=== PATIENT | female | born 1995 | race Caucasian/White ===

== ENCOUNTER 2023-01-04 14:50 | Outpatient (CLI) | payer SELFPAY ==
--- NOTE | 2023-01-04 15:00 | CRLHL7_ITS ---
For Patients: As a result of the Century Cures Act, medical imaging exams and procedure reports are released immediately into your electronic medical record. You may view this report before your referring provider. If you have questions, please contact your health care provider. INDICATION: Dating and viability TECHNIQUE: Ultrasound OB pelvis transabdominal and transvaginal. Real-time lugo-scale imaging of the pelvis was performed. COMPARISON: None FINDINGS: There is an intrauterine gestational sac with a embryo measuring 15 millimeters in crown-rump length. This corresponds to 7 weeks 6 days. No cardiac activity is identified visually, with M-mode or color Doppler imaging. Mildly enlarged yolk sac at 7 millimeters. No perigestational bleed. Maternal right ovary unremarkable. Maternal left ovary contains a 1.6 centimeter corpus luteum. IMPRESSION: Single intrauterine gestation with a sonographic age of 7 weeks 6 days without cardiac activity consistent with demise. Dictated by Wilfrido Padilla MD @ 01/04/2023 4:43:14 PM (Electronically Signed)
== END 2023-01-04 14:51 | disposition home or self-care (01) ==
LOC: US 14:53
PROVIDERS: PCP Physician Assistant; Visit Provider Physician Assistant
DX: Z34.91 Encounter for supervision of normal pregnancy, unspecified, first trimester (principal); Z3A.09 9 weeks gestation of pregnancy
CPT/HCPCS: 76817

== ENCOUNTER 2023-01-04 16:03 | Outpatient (CLI) | payer SELFPAY | END 2023-01-04 16:04 | disposition home or self-care (01) | PROVIDERS: PCP Physician Assistant; Visit Provider Physician Assistant | DX: Z34.91 Encounter for supervision of normal pregnancy, unspecified, first trimester (principal); Z3A.09 9 weeks gestation of pregnancy | CPT/HCPCS: 84702; 86850; 86900; 86901 ==

== ENCOUNTER 2023-02-02 10:04 | Outpatient (CLI) | payer SELFPAY | END 2023-02-02 10:05 | disposition home or self-care (01) | LOC: LONREF 10:05 | PROVIDERS: PCP Physician Assistant; Visit Provider Registered Nurse | DX: O02.1 Missed abortion (principal) | CPT/HCPCS: 84702 ==

== ENCOUNTER 2023-05-25 09:06 | Outpatient (CLI) | payer OTHER, SELFPAY ==
--- NOTE | 2023-05-25 09:15 | CRLHL7_ITS ---
For Patients: As a result of the Century Cures Act, medical imaging exams and procedure reports are released immediately into your electronic medical record. You may view this report before your referring provider. If you have questions, please contact your health care provider. INDICATION: , dating and viability assessment. TECHNIQUE: Ultrasound OB pelvis transabdominal. Real-time lugo-scale imaging of the pelvis was performed. COMPARISON: None FINDINGS: Clinical Age: 9 weeks 5 days based on LMP ([facility] 12/23/2023). Sonographic imaging demonstrates a single living intrauterine gestation. The embryo demonstrates a regular cardiac rate measuring 169 beats per minute. The embryo`s crown rump length measurement of 2.9 cm corresponds to a gestational age of 9 weeks 5 days which is concordant with the clinical age. There is a normal appearing yolk sac. There are no gross abnormalities noted within the embryo at this early state of development. The placenta has not yet developed. Hypoechoic perigestational collection measuring 1.3 x 0.5 x 0.9 centimeters. Maternal left ovarian corpus luteum measuring 3.1 centimeters. Maternal right ovary unremarkable. There are no suspicious fluid collections noted in the cul-de-sac. IMPRESSION: 1. Single live intrauterine gestation with a clinical age of 9 weeks 5 days. 2. Small perigestational bleed measuring 1.3 x 0.5 x 0.9 centimeters. Perigestational bleeds of this size are often an incidental finding. 3. Left ovarian corpus luteum. Dictated by Wilfrido Padilla MD @ 05/25/2023 10:24:23 AM (Electronically Signed)
== END 2023-05-25 09:07 | disposition home or self-care (01) ==
PROVIDERS: Visit Provider Advanced Practice Midwife
DX: Z34.91 Encounter for supervision of normal pregnancy, unspecified, first trimester (principal); O20.9 Hemorrhage in early pregnancy, unspecified; Z3A.09 9 weeks gestation of pregnancy
CPT/HCPCS: 76801; 76817

== ENCOUNTER 2023-05-25 10:28 | Outpatient (CLI) | payer OTHER, SELFPAY | END 2023-05-25 10:29 | disposition home or self-care (01) | PROVIDERS: Visit Provider Advanced Practice Midwife | DX: Z34.91 Encounter for supervision of normal pregnancy, unspecified, first trimester (principal); O20.9 Hemorrhage in early pregnancy, unspecified; O34.81 Maternal care for other abnormalities of pelvic organs, first trimester; N80.102 Endometriosis of left ovary, unspecified depth; Z3A.09 9 weeks gestation of pregnancy | CPT/HCPCS: 86592; 86703; 86704; 86706; 86762; 86787; 86803; 86850; 86900; 86901; 87086; 87340 ==

== ENCOUNTER 2023-08-10 12:13 | Outpatient (CLI) | payer OTHER, SELFPAY ==
--- NOTE | 2023-08-10 12:15 | CRLHL7_ITS ---
For Patients: As a result of the Century Cures Act, medical imaging exams and procedure reports are released immediately into your electronic medical record. You may view this report before your referring provider. If you have questions, please contact your health care provider. INDICATION: survey. TECHNIQUE: Conventional transabdominal two-dimensional grayscale ultrasound examination. COMPARISON: None. FINDINGS: There is a living fetus with gestational age of 20 weeks 5 days by LMP and 21 weeks 1 day by today`s measurements. EDC based on LMP is 12/23/2023. BPD: 5.0 cm, 21 weeks 1 day Head circumference: 18.3 cm, 20 weeks 5 days Abdominal circumference: 15.8 cm, 21 weeks Femur length: 3.6 cm, 21 weeks 2 days The weight is estimated at 397 grams, the 65th percentile. The heart rate is measured at 137 beats per minute and the rhythm appears regular. The head and spine are grossly intact. No gross facial abnormality is evident. The upper lip is intact. Four cardiac chambers are demonstrated. The heart and stomach appear to be on the same side. The diaphragm is intact. Two kidneys and a bladder are demonstrated. The cord insertion is normal and three cord vessels are noted. Four extremities are demonstrated. The amniotic fluid volume is within normal limits. The placenta is anterior with no evidence of previa. The cervical length is normal at 3.7 cm. IMPRESSION: 1. Living fetus with gestational age of 20 weeks 5 days by LMP and 21 weeks 1 day by today`s measurements. EDC based on LMP is 12/23/2023. 2. No anomaly evident. Dictated by Michel Robin MD @ 08/11/2023 6:56:50 AM (Electronically Signed)
== END 2023-08-10 12:14 | disposition home or self-care (01) ==
LOC: US 12:14
PROVIDERS: Visit Provider Advanced Practice Midwife
DX: Z34.92 Encounter for supervision of normal pregnancy, unspecified, second trimester (principal); Z3A.20 20 weeks gestation of pregnancy
CPT/HCPCS: 76805

== ENCOUNTER 2023-10-06 13:41 | Outpatient (CLI) | payer OTHER, SELFPAY | END 2023-10-06 13:42 | disposition home or self-care (01) | LOC: NFLDREF 10-10 09:59 | PROVIDERS: Visit Provider Advanced Practice Midwife | DX: Z34.83 Encounter for supervision of other normal pregnancy, third trimester (principal) | CPT/HCPCS: 86592 ==

== ENCOUNTER 2023-11-28 11:31 | Outpatient (CLI) | payer OTHER, SELFPAY ==
[2023-11-29 11:28] LABS: Strep B DNA Probe Negative (Negative)
[2023-11-29 11:34] LABS: Strep B Susceptibility Needed? No
== END 2023-11-28 11:32 | disposition home or self-care (01) ==
LOC: NFLDREF 11:31
PROVIDERS: Visit Provider Advanced Practice Midwife
DX: Z34.83 Encounter for supervision of other normal pregnancy, third trimester (principal)
CPT/HCPCS: 87081; 87653

== ENCOUNTER 2023-12-25 12:52 | Outpatient (CLI) | payer OTHER, SELFPAY ==
[2023-12-25 13:10] VITALS: BP 97/63; PULSE 69
[2023-12-25 13:11] VITALS: PULSE 71; O2SAT 98
[2023-12-25 13:22] VITALS: PULSE 80; O2SAT 95
[2023-12-25 13:23] VITALS: TEMP 36.7
--- NOTE | 2023-12-25 17:35 | PC.OBNST ---
NST Note NST Note Start: 12/25/23 13:19 Freq: ONCE Status: Active Protocol: Document 12/25/23 15:55 FJZ (Rec: 12/25/23 17:34 FJZ [id number]) NST Note 2 Para (# of births) 0 EDC 12/23/23 Gestational Age In Weeks & Days 40 Weeks & 2 Days Patient Presented with Complaint(s) of Contractions/cramping Reactive Yes Appropriate for Gestational Age Yes RN Luanne Santana RN Date 12/25/23 Reactive Yes Appropriate for Gestational Age Yes MULU Hancock RN Date 12/25/23 OB NST charge Yes Complete NST Note via Write Note Yes The provider's electronic signature indicates the NST is reactive/appropriate for gestational age. *Note to provider: If an addendum is required, open the patient's chart and click on the note under the Nurse/Allied Health tab.
== END 2023-12-25 15:55 | disposition home or self-care (01) ==
LOC: OB 15:26 → OB OUT 12-26 14:51 → OB 12-27 11:00
PROVIDERS: Visit Provider Advanced Practice Midwife
DX: O47.1 False labor at or after 37 completed weeks of gestation (principal); Z3A.40 40 weeks gestation of pregnancy
CPT/HCPCS: 59025; 86592; G0463

== ENCOUNTER 2023-12-25 18:10 | Inpatient (IN) | payer OTHER, SELFPAY ==
[2023-12-25] VITALS (62 sets, daily range): BP systolic 91–154; BP diastolic 51–72; PULSE 60–96; O2SAT 91–100
[2023-12-25] MEDS: LACTATED RINGERS 1000 ML 1,000 ML 125 ML IV ×2 (18:24→19:15)
[2023-12-25 18:37] LABS: Basophils Percent Auto 0.1 % (0.0-3.0); Eosinophils Percent Auto 0.6 % (0.0-7.0); Hematocrit 42.2 % (33.0-51.0); Hemoglobin* 14.8 gm/dL (12.0-16.0); Immature Granulocytes Pct Auto 1.6 %; Lymphocytes Percent Auto 10.5 % (20-44); Mean Corpuscular HGB Conc 35 gm/dL (32-36); Mean Corpuscular Hemoglobin 35 pg (26-34); Mean Corpuscular Volume 100 fL (80-100); Monocytes Percent Auto 4.9 % (0.0-11.0); Neutrophils Percent Auto 82.3 % (42.0-72.0); Platelet Count* 149 K/uL (140-440); RDW Coefficient of Variation % 12.4 % (11.5-15.5); Red Blood Count 4.23 m/uL (4.00-5.20); White Blood Count* 14.17 K/uL (4.50-11.00)
[2023-12-25 18:38] LABS: Slide Review Reflex No
--- NOTE | 2023-12-25 18:48 | P.LDBA_ITS ---
Subjective History of Present Illness Date Seen: 12/25/23 Narrative: Patient is being admitted to Labor and Delivery for SROM. She is a 28 year old at 40.2 weeks gestation. Her full history and physical was dictated by Manohar LANDAVERDE APRN on 12/07/23. Please see this for details. Specific Issues/Plans H&P completed-12/07/2023 Manohar LANDAVERDE APRN No OB problems. Wants IOL around 40 weeks so she can attend her brothers wedding. tentative plan for 12/25 Needs pap PP. COVID: declines Flu: declines TDAP: 11/03/23 32wk Mental Health: 34wk Hgb:12.8 OB - Problem Based A/P Additional Plan (1) 40 weeks gestation of : Status: Acute (2) Pain during labor: Status: Acute Plan Assessment:?? at 40.2 weeks gestation?? GBS negative? Patient is coping well with challenges of labor.?? Labor type: Spontaneous, Early labor? Category 1 FHR pattern.?Tachsystolic contractions at this time. complicated by: No OB problems Plan:?? * ?Admit to L & D? * IV access: SL placed as pt desires epidural * Fluid bolus now and position change * Monitoring per policy: continuous ? * Candidate for analgesia of choice.? Planning epidural for pain management, recently placed * Expectant management at this time ? * Patient encouraged to reposition to promote physiologic labor and . * Anticipate ? Delivery/Labor/Induction Plan Plan: expectant management OB Exam Physical Exam Vital signs: Pulse BP Pulse Ox 85 111/64 100 12/25/23 18:38 12/25/23 18:38 12/25/23 18:47 Narrative: Vitals Reviewed Constitutional:? Alert and oriented x3 HEENT:? Normocephalic, atraumatic Neck:? Supple Lungs:? Clear to auscultation bilaterally Heart:? Regular rate and rhythm, no murmur, rub or gallop Abdomen:? Soft, nontender, and gravid. Vertex by Ignacio's, confirmed with cervical exam. Extremities:? No edema or erythema Cervix: 4 cm/80%/0 station/vertex per RN NST: 120 bpm/moderate variability/+accelerations/-decelerations/moderate contractions, very frequent contractions every 1 minutes for last 30 minutes Detailed Labor and Delivery Exam Patient Gravid: Yes
[2023-12-25] MEDS: LIDOCAINE 2% (PF) 5 ML VIAL EPIDURAL (18:49)
[2023-12-25] MEDS: ROPIVACAINE 0.2% 100 ml 100 ML 12 MG EPIDURAL (18:49)
--- NOTE | 2023-12-25 18:55 | PM.ANBPRC ---
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 What is your current living situation?: I presently have a place to live Problems where you live: no known problems In the past 12 months, utilities in danger of being shut off: no In past 12 months, lack of transportation kept you from medical appts, meetings, work, or getting things needed for daily living: no In the past 12 mos, have been you worried that your food would run out before you had money to buy more?: never true In the past 12 mos, the food you bought just didn't last and you didn't have money to buy more?: never true Smoking Status: Never smoker How often does anyone, including family, friends and others, physically hurt you: never How often does anyone, including family, friends and others, insult or talk down to you: never How often does anyone, including family, friends and others, threaten you with harm: never How often does anyone, including family, friends and others, scream or curse at you: never Little interest or pleasure in doing things: not at all Feeling down, depressed, or hopeless: not at all Meds Home Medications and Allergies Home Medications ?Medication ?Instructions ?Recorded ?Confirmed ?Type vits no.126-ferrous fum 1 tab PO DAILY 05/25/23 12/25/23 History 28 mg iron-folic acid 800 mcg tablet (Classic ) Allergies Allergy/AdvReac Type Severity Reaction Status Date / Time No Known Drug Allergies Allergy Verified 12/25/23 14:07 Results Labs Labs: Laboratory Results - last 24 hr 12/25/23 18:16 WBC 14.17 H RBC 4.23 Hgb 14.8 Hct 42.2 MCV 100 MCH 35 H MCHC 35 RDW Coeff of Nilesh 12.4 Plt Count 149 Neut % (Auto) 82.3 H Lymph % (Auto) 10.5 L [place] % (Auto) 4.9 Eos % (Auto) 0.6 Baso % (Auto) 0.1 Neut # (Auto) 11.70 H Lymph # (Auto) 1.50 [place] # (Auto) 0.70 Eos # (Auto) 0.10 Baso # (Auto) 0.00 Abs Immat Gran (auto) 0.20 Imm/Tot Granulo (auto) 1.6 Vital Signs Vital Signs: Last Vital Signs Pulse 73 12/25/23 18:55 BP 107/60 12/25/23 18:55 Pulse Ox 100 12/25/23 18:52 Weight: 125.191 kg Height: 160.02 cm Anesthesia Procedures Epidural Insertion Patient Location: OB Start Time: 18:30 Stop Time: 19:05 Start Date: 12/25/23 Stop Date: 12/25/23 Reason for Block: primary anesthetic Patient Position: sitting Performed By: Tima Cruz Preanesthetic Checklist: IV checked, risks and benefits discussed, surgical consent, monitors and equipment checked, pre-op evaluation, timeout performed and anesthesia consent Prep: chlorhexidine gluconate Monitoring: blood pressure monitoring, equipment monitor phototypesetting, continuous pulse oximetry and heart rate Approach: midline Vertebral Space: lumbar (1-5) Needle Type: Tuohy needle Injection Technique: continuous catheter (catheter) Needle gauge: 17 Needle Length (cm): 10 cm Needle Insertion Depth (cm): 5 Catheter Gauge: 19 Catheter Type: multi-orifice Catheter at skin depth (cm): 10 Test Dose Result: negative and lidocaine 1.5% with epinephrine 1 to 200,000
--- NOTE | 2023-12-25 21:12 | PM.OBPNL ---
Subjective Time Seen by Provider: 21:10 Date Seen: 12/25/23 Narrative: ?Pau is coping well with labor pain/contractions. ?Juan Pablo is with her for support. ?She would like to continue with her epidural for comfort and pain management.?She is viry often but not feeling pressure. Was given an IV fluid bolus with no change in contraction frequentcy. Cervical exam shows she is complete and +2. Objective Exam: VSS, afebrile General Appearance:? Calm, cooperative. ?No acute distress. ? Psychiatric Exam: Alert and oriented, appropriate affect Abdomen: Gravid Ctx: ?Q 1-1.5 min apart. ? ? ?Strong FHTs: ?Baseline: 130. ? ? Variability: moderate. ?Accels: +. ? ?Decels: ?-. SVE: 10/100/+2 Membranes: ?SROM, clear Vital Signs: Last Vital Signs Pulse 81 12/25/23 20:58 BP 107/60 12/25/23 20:58 Pulse Ox 99 12/25/23 21:12 Plan Plan: Assessment:?? at 40.2 weeks gestation?? GBS negative Patient is coping well with challenges of labor.?? Labor type: Spontaneous, Active labor? Category 1 FHR pattern.? complicated by: no OB poroblems Plan:?? Plan to start pushing soon. Continue with routine intrapartum cares as ordered.?? Patient encouraged to move and change positions to promote physiologic labor and .?? Nonpharmacologic comfort measures per patient preference. Epidural infusing. Anticipate progress to NVD. ?
[2023-12-25] MEDS: OXYTOCIN 30 unit/500 ML in NS 30 UNIT/500 ML BAG 300 UNIT IVPB (22:03)
--- NOTE | 2023-12-25 23:05 | W.PM.OBVAGDE ---
OB Procedure Vag Delivery Mother Details Mother Details: The patient is a 28 year-old, 2, Para 0, admitted on 12/25/23 at 40.2Days gestation. : 2 Para: 1 Weeks Gestation: 40.2 Admission Date: 12/25/23 Additional Details Amniotic Membrane Status: SROM Amniotic Membrane Rupture Date: 12/25/23 Amniotic Membrane Rupture Time: 17:15 Amniotic Membrane Fluid Description: Clear Analgesia/Anesthesia Type: Epidural Waterbirth: No Pitcoin: Yes Labor Onset: 17:15 Complete: 21:09 Pushin:25 Heart: heart tones during second stage were continuously monitored Category 2 with moderate variability and variables with contractions. Delivery Details Delivery Date: 12/25/23 Delivery Time: 22:02 Route of delivery: Infant Gender: Male Infant Viability: Alive; Heart Rate Present Position at Delivery: OA Delivery Details: 28?y.o?at 40.2 weeks.? Pau had been laboring since this morning and been in for evaluation earlier in the day. She was contacting at that time irregularly and was managing well with her contractions. She returned with strong regular contractions and SROM of clear fluid. Requesting an epidural on arrival and once that was placed she progressed not long after to complete. ? ? She became complete at 2108.??She pushed in left tilt positions effectively.? Spontaneous vaginal delivery at 2201 of?a viable?male infant.??Delivered in vertex OA position.??Shoulders delivered easily.? Spontaneous cry noted.?? placed on maternal abdomen.??Cord?was clamped and cut after a 5+ minute delay.??Nose and mouth were bulb suctioned.??? There was a true knot in the cord noted at delivery. Shoulder dystocia: no? Nuchal cord: no? Meconium stained?fluid: no? Water : no? ? ? 8 at 1 minute and 9 at 5 minutes.? Weight is pending. ? Placenta delivered spontaneously and?complete?at 2213 with a?3 vessel?cord.?? Bleeding controlled with fundal massage and?pitocin?for AMTSL.? ? Mother and infant were stable after delivery.? ? Lacerations:? 2nd degree, repaired with 3-0?vicryl.?? ? Bleeding?post delivery?was: minimal. ?The fundus was firm to palpation.? Blood loss: 100?mL.? Blood loss measurement type: QBL? ? ? Sponge,?lap?and needles counts are correct.? Mother and were stable after delivery.? 1 Minute Interval Total Score: 8 5 Minute Interval Total Score: 9 Additional Details Shoulder Dystocia: No Placenta Delivery Time: 22:13 Placental Delivery Description: Spontaneous Delivery repair: Vicryl Procedure Done: Global Blood Loss: 100 Laceration: Perineal - 2nd Degree Blood Loss Measurement Type: QBL Bakri Used: No Sponge/Need Count Correct: Yes Cord Vessel Description: 3 Vessels and True Knot Event Summary Status: Mother and were stable after delivery. Disposition: floor
[2023-12-26] VITALS (7 sets, daily range): BP systolic 98–116; BP diastolic 55–72; PULSE 58–77; RESP 12–16; TEMP 36.3–36.7; O2SAT 97–99; BMI 28.8
[2023-12-26] MEDS: ACETAMINOPHEN 500 MG TABLET 1000 MG PO ×2 (03:13→11:20)
[2023-12-26] MEDS: IBUPROFEN 600 MG TABLET PO ×2 (06:49→15:47)
--- NOTE | 2023-12-26 07:19 | PM.ANPOST ---
Post Anesthesia Note Post Anesthesia Note Patient seen: Inpatient Respiratory Status: adequate Cardiovascular Status: adequate Mental Status: baseline Pain: adequate Temp: baseline Anesthetic awareness: N/A Complications: none Follow care: none
[2023-12-26] MEDS: DOCUSATE SODIUM 100 MG CAPSULE PO (09:02)
--- NOTE | 2023-12-26 12:23 | PM.OBDSVD1 ---
DS: Providers Provider Date Seen: 12/26/23 Date of admission: 12/25/23 18:10 Primary care physician: Not a Local Provider Admitting Clinician: Lynn Retana CNM Attending Physician on discharge: Lynn Retana CNM Date of Discharge: 12/26/23 DS: Diagnosis Discharge Diagnosis (1) Lactating mother: Status: Acute (2) care following vaginal delivery: Status: Acute Exam Narrative: Exam Narrative: GENERAL APPEARANCE:? normal affect, alert, no distress? MOOD:? appropriate? CHEST:? clear to auscultation and percussion? HEART:? regular rate and rhythm? ABDOMEN:? soft, non-tender the uterine fundus is U/2 and is appropriate for the stage of recovery.? PERINEUM:? mild edema of the perineum, there is a 2nd degree laceration that is healing well.? EXTREMITIES:? normal and no edema? Const: Vital Signs, click to edit/add: Vital Signs - 24 hr 12/25/23 18:37 12/25/23 18:38 12/25/23 18:42 Temperature Pulse Rate 85 Pulse Rate [Blood Pressure Cuff] Respiratory Rate Blood Pressure 111/64 Blood Pressure [Ri ght Arm] Pulse Oximetry 100 [facility] 18:46 12/25/23 18:47 12/25/23 18:49 Temperature Pulse Rate 78 Pulse Rate [Blood Pressure Cuff] Respiratory Rate Blood Pressure 112/63 Blood Pressure [Ri ght Arm] Pulse Oximetry 92 100 [facility] 12/25/23 18:51 12/25/23 18:52 12/25/23 18:53 Temperature Pulse Rate 77 78 Pulse Rate [Blood Pressure Cuff] Respiratory Rate Blood Pressure 103/63 105/58 L Blood Pressure [Ri ght Arm] Pulse Oximetry 100 [facility] 12/25/23 18:55 12/25/23 18:57 12/25/23 18:59 Temperature Pulse Rate 73 76 75 Pulse Rate [Blood Pressure Cuff] Respiratory Rate Blood Pressure 107/60 105/59 L 108/60 Blood Pressure [Ri ght Arm] Pulse Oximetry 100 [facility]25/23 19:01 12/25/23 19:02 12/25/23 19:03 Temperature Pulse Rate 84 78 Pulse Rate [Blood Pressure Cuff] Respiratory Rate Blood Pressure 103/56 L 108/61 Blood Pressure [Ri ght Arm] Pulse Oximetry 100 Oxygen Delivery [facility] 12/25/23 19:05 12/25/23 19:07 12/25/23 19:12 Temperature Pulse Rate 77 Pulse Rate [Blood Pressure Cuff] Respiratory Rate Blood Pressure 112/61 Blood Pressure [Ri ght Arm] Pulse Oximetry 100 100 Oxygen Delivery [facility] 12/25/23 19:13 12/25/23 19:17 12/25/23 19:18 Temperature Pulse Rate 83 69 Pulse Rate [Blood Pressure Cuff] Respiratory Rate Blood Pressure 98/53 L 111/57 L Blood Pressure [Ri ght Arm] Pulse Oximetry 100 Oxygen Delivery [facility] 12/25/23 19:21 12/25/23 19:22 12/25/23 19:27 Temperature Pulse Rate 75 75 Pulse Rate [Blood Pressure Cuff] Respiratory Rate Blood Pressure 111/58 L 108/59 L Blood Pressure [Ri ght Arm] Pulse Oximetry 100 100 Oxygen Delivery [facility] 12/25/23 19:32 12/25/23 19:37 12/25/23 19:42 Temperature Pulse Rate 74 Pulse Rate [Blood Pressure Cuff] Respiratory Rate Blood Pressure 105/56 L Blood Pressure [Ri ght Arm] Pulse Oximetry 99 99 99 Oxygen Delivery [facility] 12/25/23 19:47 12/25/23 19:52 12/25/23 19:57 Temperature Pulse Rate Pulse Rate [Blood Pressure Cuff] Respiratory Rate Blood Pressure Blood Pressure [Ri ght Arm] Pulse Oximetry 98 99 98 Oxygen Delivery [facility] 12/25/23 19:58 12/25/23 20:02 12/25/23 20:07 Temperature Pulse Rate 78 Pulse Rate [Blood Pressure Cuff] Respiratory Rate Blood Pressure 104/60 Blood Pressure [Ri ght Arm] Pulse Oximetry 99 99 Oxygen Delivery Co [facility] 12/25/23 20:12 12/25/23 20:13 12/25/23 20:17 Temperature Pulse Rate 72 Pulse Rate [Blood Pressure Cuff] Respiratory Rate Blood Pressure 111/58 L Blood Pressure [Ri ght Arm] Pulse Oximetry 100 100 Oxygen Delivery Co [facility]od 12/25/23 20:22 12/25/23 20:25 12/25/23 20:27 Temperature Pulse Rate Pulse Rate [Blood Pressure Cuff] Respiratory Rate Blood Pressure Blood Pressure [Ri ght Arm] Pulse Oximetry 99 91 99 Oxygen Delivery Me [facility] 12/25/23 20:28 12/25/23 20:32 12/25/23 20:37 Temperature Pulse Rate 69 Pulse Rate [Blood Pressure Cuff] Respiratory Rate Blood Pressure 122/56 L Blood Pressure [Ri ght Arm] Pulse Oximetry 99 98 Oxygen Delivery Me thod 12/25/23 20:42 12/25/23 20:44 12/25/23 20:47 Temperature Pulse Rate 73 Pulse Rate [Blood Pressure Cuff] Respiratory Rate Blood Pressure 99/55 L Blood Pressure [Ri ght Arm] Pulse Oximetry 97 99 Oxygen Delivery Me thod 12/25/23 20:52 12/25/23 20:57 12/25/23 20:58 Temperature Pulse Rate 81 Pulse Rate [Blood Pressure Cuff] Respiratory Rate Blood Pressure 107/60 Blood Pressure [Ri ght Arm] Pulse Oximetry 98 98 Oxygen Delivery Me thod 12/25/23 21:02 12/25/23 21:07 12/25/23 21:12 Temperature Pulse Rate Pulse Rate [Blood Pressure Cuff] Respiratory Rate Blood Pressure Blood Pressure [Ri ght Arm] Pulse Oximetry 98 98 99 Oxygen Delivery Me [facility] 12/25/23 21:17 12/25/23 21:28 12/25/23 21:43 Temperature Pulse Rate 96 85 Pulse Rate [Blood Pressure Cuff] Respiratory Rate Blood Pressure 154/72 H 101/59 L Blood Pressure [Ri ght Arm] Pulse Oximetry 99 Oxygen Delivery Me thod 12/25/23 22:13 12/25/23 22:29 12/25/23 22:44 Temperature Pulse Rate 81 90 83 Pulse Rate [Blood Pressure Cuff] Respiratory Rate Blood Pressure 105/52 L 103/61 97/55 L Blood Pressure [Ri ght Arm] Pulse Oximetry Oxygen Delivery Me thod 12/25/23 22:59 12/25/23 23:14 12/25/23 23:29 Temperature Pulse Rate 75 68 68 Pulse Rate [Blood Pressure Cuff] Respiratory Rate Blood Pressure 96/54 L 91/51 L 97/56 L Blood Pressure [Ri ght Arm] Pulse Oximetry Oxygen Delivery Me thod 12/25/23 23:44 12/25/23 23:59 12/26/23 00:14 Temperature Pulse Rate 60 71 71 Pulse Rate [Blood Pressure Cuff] Respiratory Rate Blood Pressure 103/61 94/58 L 99/55 L Blood Pressure [Ri ght Arm] Pulse Oximetry Oxygen Delivery Me thod 12/26/23 00:29 12/26/23 03:16 12/26/23 07:32 Temperature 97.7 F 98.0 F Pulse Rate 77 Pulse Rate [Blood Pressure Cuff] 68 58 L Respiratory Rate 12 16 Blood Pressure 98/56 L Blood Pressure [Ri ght Arm] 106/70 107/69 Pulse Oximetry 97 Oxygen Delivery Me thod Room Air 12/26/23 11:28 Temperature 97.6 F Pulse Rate Pulse Rate [Blood Pressure Cuff] 63 Respiratory Rate 16 Blood Pressure Blood Pressure [Ri ght Arm] 116/72 Pulse Oximetry 98 Oxygen Delivery Me thod Room Air OB - DS: Summary Hospital Course Hospital Course: Pau is a 28 year old G 2 P 1 at 40.3 weeks gestation that was admitted to the Center on 12/25/23 for active labor. She had an uncomplicated vaginal delivery. She delivered a viable male infant. She is breast feeding. Feeding initially went well but struggled over night. Started using a shield today which she feels helps significantly. the patient has done well. Her pain is well controlled with current medications.? She has no new complaints.? Urinary output is adequate and she is voiding without difficulty.? Has a good appetite, is tolerating a general diet, is passing flatus, and has not had a bowel movement.? Has small amount of rubra lochia.? She is ambulating well. She is unsure yet what she is planning for control. We discussed pros and cons of discharging after 24hours vs staying another night. She would like to discharge tonight despite the late hours and difficulty feeding last night. Peripartum Data Infant delivery method: Vaginal Laceration description: Perineal - 2nd Degree Episiotomy description: None complications: none Infant Gender: Male Infant Discharge Plan: Home Status at Discharge Functional status at discharge: independent ambulation Overall status at discharge: patient is progressing back to baseline Time Spent with Patient Time attestation: Total time spent providing and/or coordinating discharge services: Discharge Plan Discharge Disposition: Home, Self-Care Date of Admission: 12/25/23 18:10 Attending Provider on Discharge: Padmini Espana Primary Care Provider: Provider,Not a Local Condition: Stable Anticipated Discharge Date/Time: 12/26/23 23:30 Discharge Medications: New docusate sodium 100 mg Capsule 100 mg PO DAILY Qty: 60 0RF Rx Instructions: Take 1-2 tablets daily as needed for constipation. ibuprofen 600 mg Tablet 600 mg PO Q6H PRNQty: 30 0RF Continued Classic 28 mg iron- 800 mcg tablet 1 tab PO DAILY Discharge Orders: Discharge Order (Routine); Ordered 12/26/23 Ordered By: Padmini Espana Patient Education: OB Vaginal/Breast Feeding Additional Instructions: Discharge instructions were reviewed with the patient including signs and symptoms of infection and home going medications.? Lifting Restrictions: 20 pounds for 6? weeks? ?? Do not drive while taking narcotic pain meds.? Off Work or School for 6 weeks.? ?? Symptoms to report to doctor:? -Bleeding that saturates more than one pad per hour? -Passing clots larger than the size of a golf ball? -Pain not relieved by prescribed medication? -Fever above 100.4 degrees Fahrenheit? -A foul vaginal odor? -Difficulty in emotions, mood and functions? -Thoughts of hurting yourself and/or ? -Painful, reddened area in your breast? -Any drainage, redness or tenderness in your IV/epidural site? -Severe headache that doesn't improve after taking medications? -Changes in vision, including temporary loss of vision, blurred vision, and/or light sensitivity? -Upper abdominal pain (usually under ribs on the right side)? -Decrease in urination or painful, frequent urinating? -Chest pain? -Shortness of breath? -Tenderness or pain with redness and/swelling in the calf(s) of your leg? ?? Follow Up in clinic in 2 and 6 weeks.? ?? consultation services are available to all mothers and babies for the first year after delivery.? To make an appointment, please call [phone].? Activity Level: Activity as Tolerated Discharge Diet: Regular Follow Up Appointments: [facility] [Provider Group] Provider,Not a Local [Primary Care Provider] - Forms: Prescription [facility] Info Instructions
[2023-12-27 16:59] LABS: Rapid Plasma Reagin (RPR) Non Reactive (Non Reactive)
== END 2023-12-26 23:05 | disposition home or self-care (01) | DRG 807 ==
LOC: OB OUT 18:32 → OB 19:03
PROVIDERS: Admitting Provider Advanced Practice Midwife; Visit Provider Advanced Practice Midwife
DX: O70.1 Second degree perineal laceration during delivery (principal); Z37.0 Single live birth; Z3A.40 40 weeks gestation of pregnancy; O69.2XX0 Labor and delivery complicated by other cord entanglement, with compression, not applicable or unspecified
CPT/HCPCS: 01967; 36415; 85025; 86592; 86850; 86900; 86901; G0463; A9270; J2371; J2795; J7120

== ENCOUNTER 2025-03-15 12:08 | Outpatient (CLI) | payer OTHER, SELFPAY ==
--- NOTE | 2025-03-15 12:15 | CRLHL7_ITS ---
For Patients: As a result of the Cures Act, medical imaging exams and procedure reports are released immediately into your electronic medical record. You may view this report before your referring provider. If you have questions, please contact your health care provider. LMP: 01/05/2025. MORALES by LMP: 10/12/2025. GA: 9w, 6d. Single. INDICATION: Dating and viability. CRL: 3.25 cm, 10w 1d. MORALES 10/10/2025. FHR: 169 bpm. GESTATIONAL SAC: 5.5 cm, appears within normal limits. YOLK SAC: 4.3 mm, appears within normal limits. RIGHT OVARY: Not visualized. LEFT OVARY: 3.1 x 2.8 x 2.5. IMPRESSION: Single living intrauterine measuring 10 weeks 1 day and sonographic due date 10/10/2025. Munir Hoffman M.D. Diagnostic Radiologist [email or web address] CORDELL/denice / bM/Dictated by: Munir Hoffman MD @ 03/15/2025 4:59:00 PM (Electronically Signed)
== END 2025-03-15 12:09 | disposition home or self-care (01) ==
LOC: US 12:08
PROVIDERS: Visit Provider Midwife
DX: Z34.91 Encounter for supervision of normal pregnancy, unspecified, first trimester (principal); Z3A.10 10 weeks gestation of pregnancy
CPT/HCPCS: 76801

== ENCOUNTER 2025-03-15 13:41 | Outpatient (CLI) | payer OTHER, SELFPAY | END 2025-03-15 13:42 | disposition home or self-care (01) | PROVIDERS: Visit Provider Midwife | DX: Z34.81 Encounter for supervision of other normal pregnancy, first trimester (principal); Z67.40 Type O blood, Rh positive | CPT/HCPCS: 83020; 83021; 84443; 85660; 86592; 86703; 86704; 86706; 86762; 86787; 86803; 86850; 86900; 86901; 87086; 87340 ==

== ENCOUNTER 2025-05-23 08:12 | Outpatient (CLI) | payer OTHER, SELFPAY ==
--- NOTE | 2025-05-23 08:15 | CRLHL7_ITS ---
For Patients: As a result of the Century Cures Act, medical imaging exams and procedure reports are released immediately into your electronic medical record. You may view this report before your referring provider. If you have questions, please contact your health care provider. OB ULTRASOUND GREATER THAN 14 WEEKS CLINICAL HISTORY: Basic anatomy survey. TECHNIQUE: Real time lugo scale imaging of the fetus was performed. Transabdominal imaging performed. COMPARISON: 03/15/2025. FINDINGS: MORALES by LMP: 10/12/2025. GA: 19 weeks 5 days. Position: Vertex. Cervix: Visualized. Technique: TA. Length of closed cervix: 3.5 cm. Placenta/Cord: Anterior. Technique: TA. Placenta tip to internal OS: 9.7 cm. Umbilical Cord: 3 vessel cord. Placental Insertion: Central. Amniotic Fluid: 4.4 cm SDP. Observed Structures Calvarium/Spine: Cerebellum: 1.99 cm, 19 weeks 6 days Cisterna Magna: 5.5 mm Nuchal Fold: 4.3 mm Lateral ventricle CSP Midline Falz Spine Bilateral CPCs Abdomen: Stomach Abd Cord Insert Urinary Bladder Kidneys Diaphragm Face: Nose/Lips Orbital view Profile Limbs: Upper Extremities Lower Extremities Hands Feet Vascular: 4 Ch Heart LVOT RVOT 3VV 3VTV BIOMETRY BPD: 4.7 cm, 20 weeks 1 day. 69% HC: 17 cm, 19 weeks 4 days. 39% AC: 14.8 cm, 20 weeks 0 days. 53% FL: 3.4 cm, 20 weeks 3 days. 71% FL/AC: 22.85. HC/AC: 1.16. Heart Rate: 144 bpm. Age by this US: 20 weeks 0 days. MORALES by this US: 10/10/2025. EFW: 12 oz. Percentile by MORALES: 71% IMPRESSION: 1. Bilateral choroid plexus cysts are present which measure up to 6 mm. Level 2 ultrasound recommended. Remainder of the anatomic survey normal. 2. Concordance of clinical and sonographic dating. Munir Hoffman M.D. Diagnostic Radiologist [email or web address] Transcribed: 10:11 am DW/Dictated by: Munir Hoffman MD @ 05/23/2025 9:43:00 AM (Electronically Signed)
== END 2025-05-23 08:13 | disposition home or self-care (01) ==
LOC: US 08:13
PROVIDERS: Visit Provider Midwife
DX: O34.82 Maternal care for other abnormalities of pelvic organs, second trimester (principal); N83.11 Corpus luteum cyst of right ovary; N83.12 Corpus luteum cyst of left ovary; Z3A.20 20 weeks gestation of pregnancy
CPT/HCPCS: 76805